=== PATIENT | female | born 2000 | race Native Hawaiian/Other Pacific Islander ===

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

== ENCOUNTER 2020-06-13 11:08 | Outpatient (CLI) | payer BC | END 2020-06-13 19:37 | disposition home or self-care (01) | LOC: US 11:08 → MAMMO 11:30 → US 19:37 | PROVIDERS: ATTEND Nurse Practitioner Primary Care | DX: N63.20 Unspecified lump in the left breast, unspecified quadrant (principal) ==

== ENCOUNTER 2020-07-03 10:34 | Emergency (ER) | payer OTHER ==
[~2020-07-03] VITALS: Ht 160 cm; Wt 83.9 kg
[2020-07-03 11:02] LABS: PLATELET COUNT 329 K/uL (152-353)
[2020-07-03 11:12] LABS: POTASSIUM 3.9 mmol/L (3.6-5.2)
[2020-07-03] MEDS ORDERED: MULTIVITAMIN AD1 TA2 PO (11:31)
[2020-07-03] MEDS ORDERED: SPRINTEC BIRTH CONTR PO (11:33)
[2020-07-03] MEDS ORDERED: FLUOXETINE20 M1 PO (11:33)
[2020-07-03 14:00] VITALS: BP 140/74; TEMP 98.2
== END 2020-07-03 14:00 | disposition home or self-care (01) ==
LOC: ED 10:34
PROVIDERS: Family Medicine
PROC: 0JQK0ZZ Repair Left Hand Subcutaneous Tissue and Fascia, Open Approach (ICD-10-PCS; principal; 2020-07-03)
PROC: 2W3KX1Z Immobilization of Left Finger using Splint (ICD-10-PCS; 2020-07-03)
DX: S61.211A Laceration without foreign body of left index finger without damage to nail, initial encounter (principal); S61.213A Laceration without foreign body of left middle finger without damage to nail, initial encounter; S62.641A Nondisplaced fracture of proximal phalanx of left index finger, initial encounter for closed fracture; W31.82XA Contact with other commercial machinery, initial encounter; Y92.512 Supermarket, store or market as the place of occurrence of the external cause
CPT/HCPCS: 36415; 80053; 85027; 90471; 90715; 96374; 96375; 99284; J2175; J2405

== ENCOUNTER 2020-07-03 15:31 | Outpatient (CLI) | payer OTHER ==
[~2020-07-03 15:31] MED LIST: FLUOXETINE20 M1 PO; MULTIVITAMIN AD1 TA2 PO; SPRINTEC BIRTH CONTR PO
== END 2020-07-03 20:51 | disposition home or self-care (01) ==
LOC: LAB 15:31
PROVIDERS: ATTEND Family Medicine
DX: Z02.83 Encounter for blood-alcohol and blood-drug test (principal)
CPT/HCPCS: 80307

== ENCOUNTER 2020-11-21 14:18 | Outpatient (CLI) | payer BC | END 2020-11-21 17:44 | disposition home or self-care (01) | LOC: MAMMO 14:18 | PROVIDERS: ATTEND Nurse Practitioner Family | DX: N63.20 Unspecified lump in the left breast, unspecified quadrant (principal) ==